=== PATIENT | male | born 1995 | race Two or more races ===

== ENCOUNTER → 2017-02-13 | Outpatient (REF) | payer BC ==
[2017-02-13 17:01] LABS: MEAN CORPUSCULAR HEMOGLOBIN 29.4 pg (27.0-33.0); MEAN CORPUSCULAR HGB CONC 33.8 g/dl (32.0-36.5); RED CELL DISTRIBUTION WIDTH 12.6 % (11.5-14.5); WHITE BLOOD COUNT 8.8 K/mm3 (4.0-10.0)
[2017-02-13 17:36] LABS: ALBUMIN 4.4 GM/DL (3.2-5.2); ALBUMIN/GLOBULIN RATIO 1.29 (1.00-1.93); ALKALINE PHOSPHATASE 65 U/L (45-117); ALT/SGPT 30 U/L (12-78); ANION GAP 5 MEQ/L (8-16); AST/SGOT 20 U/L (15-37); BILIRUBIN,TOTAL 0.6 MG/DL (0.2-1.0); BLOOD UREA NITROGEN 15 MG/DL (7-18); CALCIUM LEVEL 9.5 MG/DL (8.5-10.1); CARBON DIOXIDE LEVEL 31 MEQ/L (21-32); CHLORIDE LEVEL 104 MEQ/L (98-107); CREATININE FOR GFR 0.93 MG/DL (0.70-1.30); GLUCOSE, FASTING 87 MG/DL (70-105); POTASSIUM SERUM 4.1 MEQ/L (3.5-5.1); SODIUM LEVEL 140 MEQ/L (136-145); TOTAL PROTEIN 7.8 GM/DL (6.4-8.2)
== END ==
LOC: M SFHCLERA 11:38
PROVIDERS: ATTEND Physician Assistant
DX: L74.519 Primary focal hyperhidrosis, unspecified (principal); M45.7 Ankylosing spondylitis of lumbosacral region

== ENCOUNTER → 2017-02-13 | Outpatient (CLI) | payer BC ==
--- NOTE | 2017-02-13 13:13 | REP ---
LUMBOSACRAL SPINE: Five views lumbosacral spine are performed. There is no compression fracture or malalignment. There is no spondylolysis or spondylolisthesis. Minimal disc space narrowing at L4-5. There is slight curvature of the thoracolumbar spine convex to the right. The posterior elements are intact. IMPRESSION: Mild degenerative disc change L4-5. Mild curvature toward the right. Signed by Nithin Paulino MD 02/14/2017 03:14 P
== END ==
LOC: M LRY 11:41
PROVIDERS: ATTEND Physician Assistant
DX: M51.36 Other intervertebral disc degeneration, lumbar region (principal)

== ENCOUNTER → 2017-08-09 | Outpatient (REF) | payer OTHER | LOC: M SFHCLERA 11:06 | PROVIDERS: ATTEND Nurse Practitioner Family | DX: J35.8 Other chronic diseases of tonsils and adenoids (principal) ==